=== PATIENT | female | born 2000 | race Caucasian/White ===

== ENCOUNTER 2024-04-27 11:55 | Emergency (ER) | payer BC ==
[~2024-04-27] VITALS: Ht 165.1 cm; Wt 52.2 kg
[2024-04-27] MEDS: IV NS 0.9% 1,000 ML BAG IV ONE (12:27)
[2024-04-27 12:46] LABS: BASOPHILS % (AUTO) 0.7 % (0.0-2.0); EOSINOPHILS % (AUTO) 0.8 % (0.0-6.0); HEMATOCRIT 40 % (33-45); HEMOGLOBIN 13.7 g/dL (11.5-14.8); LYMPHOCYTES # (AUTO) 1.5 K/uL (0.8-4.8); LYMPHOCYTES % (AUTO) 37.8 % (20.0-44.0); MEAN CORPUSCULAR HEMOGLOBIN 32 PG (26.0-33.0); MEAN CORPUSCULAR HGB CONC 34 g/dl (31.0-36.0); MEAN CORPUSCULAR VOLUME 93 fL (82-100); MONOCYTES # (AUTO) 0.2 K/uL (0.1-1.30); MONOCYTES % (AUTO) 4.2 % (2.0-12.0); NEUTROPHILS # (AUTO) 2.2 K/uL (1.8-8.9); NEUTROPHILS % (AUTO) 56.5 % (43.0-81.0); PLATELET COUNT (AUTO) 244 K/uL (150-450); RED BLOOD CELL COUNT(AUTO) 4.33 MIL/uL (4.0-5.2); WHITE BLOOD COUNT (AUTO) 3.9 K/uL (4.3-11.0)
[2024-04-27] MEDS ORDERED: IOHEXOL-300 100 ML VIAL IV ONE (12:48)
[2024-04-27] MEDS ORDERED: IV NS 0.9% 250 ML IV ONE (12:49)
[2024-04-27 13:03] LABS: CREATININE 0.7 mg/dL (0.6-1.3); POTASSIUM 3.3 mmol/L (3.5-5.1)
[2024-04-27 13:08] LABS: ALBUMIN 3.8 g/dL (3.4-5.0); BILIRUBIN,DIRECT 0.1 mg/dL (0.0-0.2); BILIRUBIN,TOTAL 0.3 mg/dL (0.2-1.0)
[2024-04-27] MEDS ORDERED: CEFP200T14 PO (14:52)
[2024-04-27 15:05] LABS: APPEARANCE,URINE CLEAR (CLEAR); BILIRUBIN,URINE NEGATIVE (NEGATIVE); BLOOD, URINE NEGATIVE Ery/uL (NEGATIVE); COLOR,URINE YELLOW (YELLOW); KETONES,URINE NEGATIVE (NEGATIVE); LEUKOCYTE ESTERASE ,URINE NEGATIVE (NEGATIVE); NITRITE, URINE NEGATIVE (NEGATIVE); PH,URINE 7.5 (5.0-8.0); PROTEIN,URINE NEGATIVE (NEGATIVE); UGLUCOSE NEGATIVE (NEGATIVE); UROBILINOGEN,URINE 0.2 EU/dL (0.2)
[2024-04-27] MEDS ORDERED: DICY10CA37 PO (15:17)
[2024-04-27] MEDS ORDERED: ACETAMINOPHEN 325 MG TABLET ONE (15:20)
[2024-04-27] MEDS: ACETAMINOPHEN 325 MG TABLET PO ONE (15:32)
[2024-04-27 15:43] VITALS: BP 118/70; TEMP 98.3; O2SAT 97
== END 2024-04-27 15:44 | disposition home or self-care (01) ==
LOC: ER 12:05
DX: R10.84 Generalized abdominal pain (principal); M79.7 Fibromyalgia; R00.0 Tachycardia, unspecified; R10.33 Periumbilical pain; R50.9 Fever, unspecified; F84.0 Autistic disorder; G47.419 Narcolepsy without cataplexy; Z86.59 Personal history of other mental and behavioral disorders
CPT/HCPCS: 99285; 74177; 96360; 93005; 85025; 80048; 83690; 80076; 81003; 36415; J7030; J7050; Q9967